=== PATIENT | male | born 1980 | race Caucasian/White ===

== ENCOUNTER 2016-05-21 09:50 | Emergency (ER) | payer MEDICAID | END 2016-05-21 11:02 | disposition home or self-care (01) | LOC: D.ER 09:50 | DX: S05.01XA Injury of conjunctiva and corneal abrasion without foreign body, right eye, initial encounter (principal); X58.XXXA Exposure to other specified factors, initial encounter; Y93.89 Activity, other specified; Y92.89 Other specified places as the place of occurrence of the external cause; Z87.820 Personal history of traumatic brain injury ==

== ENCOUNTER 2016-07-14 01:58 | Emergency (ER) | payer MEDICAID | END 2016-07-14 02:38 | disposition home or self-care (01) | LOC: D.ER 01:58 | DX: S05.01XA Injury of conjunctiva and corneal abrasion without foreign body, right eye, initial encounter (principal); X58.XXXA Exposure to other specified factors, initial encounter; Y93.89 Activity, other specified; Y92.89 Other specified places as the place of occurrence of the external cause; Z87.820 Personal history of traumatic brain injury ==

== ENCOUNTER 2016-07-22 17:00 | Emergency (ER) | payer MEDICAID | END 2016-07-22 17:30 | disposition left against medical advice (07) | LOC: D.ER 17:00 | DX: Z02.9 Encounter for administrative examinations, unspecified (principal) ==

== ENCOUNTER 2017-01-17 18:48 | Emergency (ER) | payer MEDICAID | END 2017-01-17 21:11 | disposition home or self-care (01) | LOC: D.ER 18:48 | DX: S01.81XA Laceration without foreign body of other part of head, initial encounter (principal); W26.9XXA Contact with unspecified sharp object(s), initial encounter; Y93.89 Activity, other specified; Y92.029 Unspecified place in mobile home as the place of occurrence of the external cause ==

== ENCOUNTER 2017-05-22 09:12 | Emergency (ER) | payer MEDICAID | END 2017-05-22 10:50 | disposition home or self-care (01) | LOC: D.ER 09:12 | DX: H57.11 Ocular pain, right eye (principal) ==

== ENCOUNTER 2017-06-02 10:38 | Emergency (ER) | payer MEDICAID | END 2017-06-02 11:49 | disposition home or self-care (01) | LOC: D.ER 10:38 | DX: S61.512A Laceration without foreign body of left wrist, initial encounter (principal); W29.3XXA Contact with powered garden and outdoor hand tools and machinery, initial encounter; Y93.89 Activity, other specified; Y92.019 Unspecified place in single-family (private) house as the place of occurrence of the external cause; F17.200 Nicotine dependence, unspecified, uncomplicated ==

== ENCOUNTER 2017-06-04 08:45 | Emergency (ER) | payer MEDICAID | END 2017-06-04 14:55 | disposition home or self-care (01) | LOC: D.ER 08:45 | DX: S05.01XA Injury of conjunctiva and corneal abrasion without foreign body, right eye, initial encounter (principal); X58.XXXA Exposure to other specified factors, initial encounter; Y93.89 Activity, other specified; Y92.89 Other specified places as the place of occurrence of the external cause; F17.200 Nicotine dependence, unspecified, uncomplicated ==

== ENCOUNTER 2017-06-26 01:08 | Emergency (ER) | payer MEDICAID | END 2017-06-26 01:50 | disposition home or self-care (01) | LOC: D.ER 01:08 | DX: J30.9 Allergic rhinitis, unspecified (principal) ==